=== PATIENT | male | born 1980 | race Caucasian/White ===

== ENCOUNTER 2018-04-20 17:45 | Emergency (ER) | payer BC, OTHER ==
[~2018-04-20] VITALS: Ht 185.4 cm; Wt 77.0 kg
[2018-04-20 17:50] VITALS: TEMP 36.7; Ht 185.4 cm; Wt 77.0 kg
[2018-04-20] MEDS ORDERED: SODIUM CHLORIDE 0.9% 1000ML 1,000 ML IV ONE (18:14)
[2018-04-20] MEDS ORDERED: SODIUM CHLORIDE 0.9% 1000ML 1,000 ML IV STA (18:14)
[2018-04-20 18:27] LABS: BASO % 0.6 %; BASO ABS # 0.04 K/uL (0-0.2); EOS % 1.7 %; EOS ABS # 0.12 K/uL (0-0.5); HEMATOCRIT 43.9 % (42-52); HEMOGLOBIN 15.3 g/dL (14.0-18.0); IG# 0.01 K/uL (0.00-0.02); LYMPH % 27.4 %; LYMPH ABS # 1.98 K/uL (1.2-3.4); MEAN CORPUSCULAR HEMOGLOBIN 30.7 pg (25-34); MEAN CORPUSCULAR HGB CONC 34.9 g/dl (32-36); MEAN PLATELET VOLUME 9.5 fL (7.4-10.4); MONO % 10.5 %; MONO ABS # 0.76 K/uL (0.11-0.59); NEUT % 59.7 %; NEUT ABS # 4.31 K/uL (1.4-6.5); PLATELET COUNT 290 K/uL (130-400); RED CELL DISTRIBUTION WIDTH CV 12.5 % (11.5-14.5); WHITE BLOOD COUNT 7.22 K/uL (4.8-10.8)
--- NOTE | 2018-04-20 18:33 | DIAGNOSTIC IMAGING REPORT ---
SINGLE VIEW CHEST CLINICAL HISTORY: Atypical chest pain. FINDINGS: 2 AP, portable, upright chest radiographs are obtained. No prior studies are available for comparison at the time of dictation. The examination is degraded by portable technique and patient rotation. An electronic device projects over the left upper chest. The cardiomediastinal silhouette is unremarkable. The lungs appear hyperinflated, likely due to good inspiratory result. No airspace consolidation or pleural effusion is identified. No pneumothorax is seen. The bony thorax is grossly intact. IMPRESSION: No acute cardiopulmonary abnormality. Electronically signed by: Alejandro Brink M.D. 04/20/2018 6:31 PM Dictated Date/Time: 04/20/2018 6:30 PM
--- NOTE | 2018-04-20 18:39 | EMERGENCY ROOM VISIT NOTE ---
History First contact with patient: 17:59 Chief Complaint: CHEST PAIN Stated Complaint: HANDS-NUMB/PALPITATION Nursing Triage Summary: Pt brought ALS for c/o palpitations, light headed, numbness in hands and feet. Pt reports palpitations for a few weeks, wearing halter monitor. Pt denies any chest pain at present, reports having chest tightness around 1600 when other sx were also beginning while sitting in his car trying to decide if he should drive home from work. Numbess in feet resolved after oxygen @ 15 L/min via NRB mask by EMS. Pt appears anxious. Pt reports hx of mitral valve issues 15-20 yrs ago. History of Present Illness The patient is a 38 year old male who presents to the Emergency Room with complaints of palpitations. This is been going on for at least several weeks to months. He said that since college he has had problems with palpitations and was diagnosed with mitral valve prolapse. Since then he got better after decreasing nicotine and caffeine use had a lot of stress at work lately. He has been on Holter monitor for the last 2 weeks and is scheduled to turn it in tomorrow. He said today at work it started like his heart was pounding fast and fluttering. This happened around 330 and he said around 430 felt dizzy and lightheaded like he might pass out he laid down. He was hyperventilating. His arms and legs got numb and "cramped in his hands. He denies any nausea or vomiting. No lower extremity pain or swelling no fall or trauma to it. No abdominal pain. No blood or melena stool no fever chills or recent illness. They placed him on a nonrebreather oxygen and the tingling has gotten significantly better. Source of History: patient, family Onset: several weeks to months Position: other (heart) Quality: other (palpitations) Timing: intermittent Modifying Factors (Relieving): other (decreasing caffeine and nicotine use) Associated Symptoms: No fevers, No chills, No nausea, No vomiting, No abdominal pain, No melena, No hematochezia Note: Associated symptoms: dizzy and lightheaded, hyperventilation, arms and legs got numb with cramped hands Denies: lower extremity pain or swelling no fall or trauma to it Review of Systems As above. All other systems reviewed were negative unless otherwise stated in history. At least 10 were reviewed Past Medical/Surgical History Old medical records were reviewed. Nurse's notes were reviewed and I agree with. Mitrial valve prolapse Denies history of diabetes, hypertension, hyperthyroidism, increased cholesterol Family History Mother has had palpitations. No coronary artery disease in the family Social History Smoking Status: Never Smoker Alcohol Use: occasionally Drug Use: none Marital Status: Housing Status: lives with family Occupation Status: employed Minimal caffeine. Current/Historical Medications No Active Prescriptions or Reported Meds Physical Exam Vital Signs Date Time Temp Pulse Resp B/P (MAP) Pulse Ox O2 Delivery O2 Flow Rate FiO2 04/20/18 20:33 78 18 120/65 100 Room Air 04/20/18 19:08 73 18 127/76 100 Room Air 04/20/18 18:09 100 Room Air 04/20/18 18:03 84 04/20/18 17:50 36.7 84 18 119/79 100 Room Air Physical Exam General: Well developed well nourished mildly anxious appearing young male who otherwise appears in no acute distress, breathing comfortably on room air. Normal speech HEENT: Normal cephalic atraumatic. Pupils are equal round and reactive to light. Sclerae anicteric extraocular movements are intact. Oropharynx is pink with moist mucous membranes. No swelling of the mouth lips or tongue. Neck: Supple with a midline trachea. No meningeal signs or stiffness, no JVD or bruits. No Stridor. Chest: Clear to auscultation bilaterally. No wheezes or rhonchi. No increased work of breathing. Heart: Regular rate and rhythm with frequent PACs on the monitor and without murmurs or gallops. Abdomen: Soft nontender, nondistended without rebound guarding or rigidity. Extremities: No cyanosis clubbing or edema. No calf tenderness or assymetry Spine/Back. Non tender to palpation. No CVA tenderness Skin: Good turgor without rashes. Neurologic exam: Cranial nerves two through 12 are intact. Motor and sensation are intact and symmetrical throughout. No tremor. Medical Decision & Procedures ER Provider Diagnostic Interpretation: Radiology results as stated below per my review and radiologist interpretation: SINGLE VIEW CHEST CLINICAL HISTORY: Atypical chest pain. FINDINGS: 2 AP, portable, upright chest radiographs are obtained. No prior studies are available for comparison at the time of dictation. The examination is degraded by portable technique and patient rotation. An electronic device projects over the left upper chest. The cardiomediastinal silhouette is unremarkable. The lungs appear hyperinflated, likely due to good inspiratory result. No airspace consolidation or pleural effusion is identified. No pneumothorax is seen. The bony thorax is grossly intact. IMPRESSION: No acute cardiopulmonary abnormality. Electronically signed by: Alejandro Brink M.D. 04/20/2018 6:31 PM Dictated Date/Time: 04/20/2018 6:30 PM Laboratory Results 04/20/18 17:55 Red Blood Count 4.99, Mean Corpuscular Volume 88.0, Mean Corpuscular Hemoglobin 30.7, Mean Corpuscular Hemoglobin Concent 34.9, Mean Platelet Volume 9.5, Neutrophils (%) (Auto) 59.7, Lymphocytes (%) (Auto) 27.4, Monocytes (%) (Auto) 10.5, Eosinophils (%) (Auto) 1.7, Basophils (%) (Auto) 0.6, Neutrophils # (Auto ) 4.31, Lymphocytes # (Auto) 1.98, Monocytes # (Auto) 0.76, Eosinophils # (Auto ) 0.12, Basophils # (Auto) 0.04 04/20/18 17:55 Test 04/20/18 17:55 04/20/18 19:53 White Blood Count 7.22 K/uL (4.8-10.8) Red Blood Count 4.99 M/uL (4.7-6.1) Hemoglobin 15.3 g/dL (14.0-18.0) Hematocrit 43.9 % (42-52) Mean Corpuscular Volume 88.0 fL (80-100) Mean Corpuscular Hemoglobin 30.7 pg (25-34) Mean Corpuscular Hemoglobin Concent 34.9 g/dl (32-36) Platelet Count 290 K/uL (130-400) Mean Platelet Volume 9.5 fL (7.4-10.4) Neutrophils (%) (Auto) 59.7 % Lymphocytes (%) (Auto) 27.4 % Monocytes (%) (Auto) 10.5 % Eosinophils (%) (Auto) 1.7 % Basophils (%) (Auto) 0.6 % Neutrophils # (Auto) 4.31 K/uL (1.4-6.5) Lymphocytes # (Auto) 1.98 K/uL (1.2-3.4) Monocytes # (Auto) 0.76 K/uL (0.11-0.59) Eosinophils # (Auto) 0.12 K/uL (0-0.5) Basophils # (Auto) 0.04 K/uL (0-0.2) RDW Standard Deviation 40.0 fL (36.4-46.3) RDW Coefficient of Variation 12.5 % (11.5-14.5) Immature Granulocyte % (Auto) 0.1 % Immature Granulocyte # (Auto) 0.01 K/uL (0.00-0.02) Anion Gap 14.0 mmol/L (3-11) Est Creatinine Clear Calc Drug Dose 94.9 ml/min Estimated GFR () 93.0 Estimated GFR (Non- 80.3 BUN/Creatinine Ratio 12.3 (10-20) Calcium Level 9.2 mg/dl (8.5-10.1) Magnesium Level 2.1 mg/dl (1.8-2.4) Total Bilirubin 0.7 mg/dl (0.2-1) Direct Bilirubin 0.2 mg/dl (0-0.2) Aspartate Amino Transf (AST/SGOT) 18 U/L (15-37) Alanine Aminotransferase (ALT/SGPT) 28 U/L (12-78) Alkaline Phosphatase 67 U/L (45-117) Total Creatine Kinase 107 U/L (39-308) Creatine Kinase MB < 1.0 ng/ml (0.5-3.6) Creatine Kinase MB Ratio (0-3.0) Total Protein 8.6 gm/dl (6.4-8.2) Albumin 4.6 gm/dl (3.4-5.0) Lipase 95 U/L (73-393) Thyroid Stimulating Hormone (TSH) 1.050 uIu/ml (0.300-4.500) Bedside Troponin I < 0.030 ng/ml (0-0.045) Laboratory studies as stated above per my review. Medications Administered Medications (Trade) Dose Ordered Sig/Sydnie Route Start Time Stop Time Status Last Admin Dose Admin Sodium Chloride 1,000 ml @ 999 mls/hr Q1H1M STAT IV 04/20/18 18:14 04/20/18 19:14 DC 04/20/18 18:20 999 MLS/HR Sodium Chloride 1,000 ml @ 150 mls/hr Q6H40M ONCE IV 04/20/18 18:14 04/20/18 21:17 DC 04/20/18 18:20 150 MLS/HR ECG Per My Interpretation Indication: palpitations Rate (beats per minute): 87 Rhythm: normal sinus Findings: PAC (frequent), no acute ischemic change Comparison ECG Date: 01/30/2012 Change: Change: PACs now present Repeat EKG in the same visit: Normal sinus rhythm with a rate of 71. No acute ischemic change. No ectopy. - Compared to previous, the PACs are now absent. ED Course 1758: Past medical records reviewed. The patient was evaluated in room C03, and a complete history and physical examination were performed. 1813: Ordered Sodium Chloride 1000 ml @ 150 mls/hr IV, Sodium Chloride 1000 ml @ 999 mls/hr IV 2037: Upon reevaluation, the patient is resting comfortably without PACs. I discussed the results and treatment plan with him. He verbalized agreement of the treatment plan. The patient was discharged home. Medical Decision Differential diagnosis includes: Acute coronary syndrome, palpitations, electrolyte or metabolic abnormalities, thyroid disease, anxiety, infection This patient comes in as described above appears placed in room C3. he has been having palpitations for months he got worse today. He appears to have PACs on the monitor. He has been hemodynamically stable. IV access established hydrated with IV normal saline. It sounds like he did have some hyperventilation as well as he had numbness of arms and legs and cramping of his hands that is gotten better. EKG does not show any ischemic changes. Troponin was obtained as well as multiple blood testing and chest x-ray. He was reassessed frequently. I did discuss case with his was also at the bedside. The patient looks much better with IV fluids and the ectopy on the monitor resolved as well. Follow-up EKG shows no ischemic changes and no PACs. He is troponins 2 were negative. He has no acute electrolyte or metabolic abnormalities. He has nothing to suggest congestive heart failure, pneumonia, or pneumothorax. He has nothing to suggest thyroid disease. I do think he needs close follow-up. I recommend he get rechecked by his doctor next 1-2 days. They can review the Holter results. additionally, he may need further cardiac testing as an outpatient such as a stress test or he was encouraged to return if worsening symptoms, any new problems or concerns. Medication Reconcilliation Current Medication List: was personally reviewed by me Blood Pressure Screening Patient's blood pressure: Normal blood pressure Blood pressure disposition: Did not require urgent referral Impression Primary Impression: Palpitations Additional Impression: Hyperventilation Departure Information Dispostion Home / Self-Care Prescriptions No Active Prescriptions or Reported Meds Referrals Tej Klein MD (PCP) Forms Call Back Authorization, HOME CARE DOCUMENTATION FORM, IMPORTANT VISIT INFORMATION Patient Instructions My [facility] Environmental Additional Instructions Rest. Drink plenty of fluids. Return if: Worsening of symptoms, chest pain, shortness of breath fever or chills, any new problems or concerns Follow-up with your doctor tomorrow for recheck Problem Qualifiers
[2018-04-20 19:11] LABS: ALBUMIN 4.6 gm/dl (3.4-5.0); ALKALINE PHOSPHATASE 67 U/L (45-117); ALT/SGPT 28 U/L (12-78); AST/SGOT 18 U/L (15-37); BLOOD UREA NITROGEN 14 mg/dl (7-18); CALCIUM 9.2 mg/dl (8.5-10.1); CARBON DIOXIDE 20 mmol/L (21-32); CKMB < 1.0 ng/ml (0.5-3.6); CREATININE 1.15 mg/dl (0.60-1.40); GLUCOSE 113 mg/dl (70-99); LIPASE 95 U/L (73-393); POTASSIUM 3.3 mmol/L (3.5-5.1); SODIUM 137 mmol/L (136-145); TOTAL PROTEIN 8.6 gm/dl (6.4-8.2)
[2018-04-20 20:33] VITALS: BP 120/65; PULSE 78; O2SAT 100
== END 2018-04-20 20:43 | disposition home or self-care (01) ==
LOC: EDBD 17:45 → C.EDC 17:45
DX: R00.2 Palpitations (principal); R06.4 Hyperventilation; I49.1 Atrial premature depolarization; R20.0 Anesthesia of skin; R25.2 Cramp and spasm; R42 Dizziness and giddiness; I34.1 Nonrheumatic mitral (valve) prolapse; Z82.49 Family history of ischemic heart disease and other diseases of the circulatory system